=== PATIENT | female | born 1980 | race Caucasian/White ===

== ENCOUNTER 2022-08-20 12:39 | Emergency (ER) | payer OTHER ==
[~2022-08-20] VITALS: Ht 160 cm; Wt 59.0 kg
[2022-08-20 12:40] VITALS: BP_SYST 140
--- NOTE | 2022-08-20 12:40 | NUR ---
Patient triaged and placed in waiting room. VSS and patient appears in no acute distress at this time. Accompanied by , awaiting available bed, and MD notified of need for MSE.
--- NOTE | 2022-08-20 13:06 | NUR ---
ER DR. ASENCIO EXAMINING PT IN TRIAGE
[2022-08-20 13:12] VITALS: BP_SYST 140
--- NOTE | 2022-08-20 13:12 | NUR ---
PT ELOPED FROM ER
== END 2022-08-20 13:12 | disposition left against medical advice (07) ==
LOC: SED 12:39
DX: Z04.1 Encounter for examination and observation following transport accident (principal); M54.2 Cervicalgia; M54.50 Low back pain, unspecified; Z79.899 Other long term (current) drug therapy
CPT/HCPCS: 99281